=== PATIENT | male | born 2000 | race Caucasian/White ===

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

== ENCOUNTER 2023-02-25 11:49 | Emergency (ER) | payer BC ==
[~2023-02-25] VITALS: Ht 188 cm; Wt 110.0 kg
[~2023-02-25 11:49] MED LIST: ALBU6.7H14 INH
[2023-02-25 12:46] VITALS: BP 145/81; PULSE 73; RESP 17; TEMP 98.1; O2SAT 98
== END 2023-02-25 12:48 | disposition home or self-care (01) ==
LOC: ER 11:50
DX: Z11.52 Encounter for screening for COVID-19 (principal); R05.9 Cough, unspecified; R09.89 Other specified symptoms and signs involving the circulatory and respiratory systems; J00 Acute nasopharyngitis [common cold]; Z88.0 Allergy status to penicillin; Z79.899 Other long term (current) drug therapy
CPT/HCPCS: 36415; 71045; 87502; 87503; 87811; 99283; 99284